=== PATIENT | female | born 1960 | race American Indian/Alaskan Native ===

== ENCOUNTER 2016-12-10 08:55 | Emergency (ER) | payer BC ==
[2016-12-10 10:05] VITALS: BP 97/48
--- NOTE | 2016-12-10 15:45 | Emergency Department Report ---
Chief Complaint: Shoulder Injury Stated Complaint: LT SHOULDER PAIN Time Seen by Provider: 12/10/16 15:36 - HPI History of Present Illness: 56-year-old female presents today with chronic left shoulder pain that worsened 2 months ago. Describes her pain as a 10 out of 10 constant, throbbing pain. Denies injury or trauma. Patient states that she's been taking her friend's muscle relaxer, Flexeril, with relief. Denies numbness, weakness, paresthesias. Denies fever, chills, nausea, vomiting, chest pain, shortness of breath, abdominal pain. - ROS Review of Systems: Per HPI - Exam Vital Signs: Vital Signs 12/10/16 10:02 Temperature 98.5 F Pulse Rate 75 Respiratory 22 Rate Blood Pressure 97/48 O2 Sat by Pulse 98 Oximetry Physical Exam: GENERAL: The patient is well-developed and well-nourished. Patient is in NAD. HEAD: Normocephalic. Atraumatic. CHEST/LUNGS: Clear to auscultation throughout. HEART/CARDIOVASCULAR: Regular rate and rhythm. ABDOMEN: Abdomen is soft, nontender. No guarding or rebound tenderness. LEFT SHOULDER: Limited range of motion due to pain. Tenderness to palpation of shoulder joint. Normal sensation. 2 point discrimination intact. Peripheral pulses intact. Capillary refill less than 2 seconds. NEURO: Alert and oriented x 3. Normal gait. MSE screening note: Focused history and physical exam performed. Due to findings the following was ordered: ED Disposition for MSE Disposition: MEDICAL SCREENING EXAM-LEFT Condition: Stable Referrals: ARPITA UGARTE MD [Primary Care Provider] - 3-5 Days
== END 2016-12-10 15:49 | disposition left against medical advice (07) ==
LOC: ED 08:55
DX: M25.512 Pain in left shoulder (principal); G89.29 Other chronic pain; Z53.21 Procedure and treatment not carried out due to patient leaving prior to being seen by health care provider

== ENCOUNTER 2018-01-11 11:43 | Outpatient (CLI) | payer MEDICARE ==
--- NOTE | 2018-01-11 13:50 | XRay Report ---
Left shoulder, 3 views: History: Pain in left shoulder. Routine views demonstrate normal bony and soft tissue structures with normal joint alignment of the shoulder. IMPRESSION: Unremarkable exam.
== END 2018-01-11 11:44 | disposition home or self-care (01) ==
LOC: XRAY 11:43
PROVIDERS: ATTEND Internal Medicine
DX: M25.512 Pain in left shoulder (principal)

== ENCOUNTER 2019-06-10 20:30 | Emergency (ER) | payer MEDICARE ==
[2019-06-10 22:00] LABS: Basophils % (Auto) 0.5 % (0.0-1.8); Eosinophils # (Auto) 0.2 K/mm3 (0.0-0.4); Eosinophils % (Auto) 3.6 % (0.0-4.3); Hematocrit 31.2 % (30.3-42.9); Hemoglobin 10.2 gm/dl (10.1-14.3); Lymphocytes # (Auto) 1.9 K/mm3 (1.2-5.4); Lymphocytes % (Auto) 32.7 % (13.4-35.0); Mean Corpuscular HGB Conc 33 % (30-34); Mean Corpuscular Hemoglobin 29 pg (28-32); Mean Corpuscular Volume 87 fl (79-97); Monocytes # (Auto) 0.6 K/mm3 (0.0-0.8); Monocytes % (Auto) 9.8 % (0.0-7.3); Platelet Count 287 K/mm3 (140-440); Red Blood Count 3.57 M/mm3 (3.65-5.03); Red Cell Distribution Width 14.4 % (13.2-15.2)
[2019-06-10 22:09] LABS: INR 0.95 (0.87-1.13)
[2019-06-10 22:10] LABS: Partial Thromboplastin Time 24.5 Sec. (24.2-36.6)
[2019-06-10 22:11] LABS: Calcium 9.6 mg/dL (8.4-10.2)
--- NOTE | 2019-06-11 02:04 | Emergency Department Report ---
ED Extremity Problem HPI - General Chief complaint: Extremity Injury, Lower Stated complaint: RIGHT FOOT PAIN/SWOLLEN Time Seen by Provider: 06/10/19 23:14 Source: patient Mode of arrival: Ambulatory Limitations: No Limitations - History of Present Illness Initial comments: Patient is a 58-year-old female who presents to the emergency room with complain ts of right foot pain and swelling that began 3 days ago. she denies ever having this in the past. she denies any calf pain. she denies any injury or fall. She states that she called her doctor's office and was advised to be evaluated in the emergency room for a DVT. She has a past medical history of DM, CHF, PAD, glaucoma, DE. She states she takes Lasix for her CHF. She states she does not usually experience swelling with her CHF. She denies any history of DVT or PE. - Related Data Home Medications Medication Instructions Recorded Confirmed Last Taken Isosorbide Dinitrate [Isordil 20 mg PO BID 05/31/15 05/31/15 05/30/15 Titradose] Lisinopril [Zestril TAB] 40 mg PO QDAY 05/31/15 05/31/15 05/30/15 Sitagliptin Phos/Metformin HCl 1 each PO DAILY 05/31/15 05/31/15 05/30/15 [Janumet 50-500 mg Tablet] hydrALAZINE [Apresoline TAB] 25 mg PO Q8H 05/31/15 05/31/15 05/30/15 Previous Rx's Medication Instructions Recorded Last Taken Type Aspirin 325 mg PO QDAY #30 tablet 07/28/13 05/30/15 Rx Carvedilol [Coreg] 25 mg PO BID #60 tablet 07/28/13 05/30/15 Rx Clopidogrel [Plavix] 75 mg PO QDAY #30 tablet 07/28/13 05/30/15 Rx Hum Insulin NPH/Reg Insulin Hm 15 unit SQ BID #14 ml 07/28/13 05/30/15 Rx [Humulin 70-30 Pen] Simvastatin [Zocor TAB] 40 mg PO QHS #30 tablet 07/28/13 05/30/15 Rx Acetaminophen [Acetaminophen ER] 650 mg PO BID PRN #20 tablet.er 06/11/19 Unknown Rx Allergies Allergy/AdvReac Type Severity Reaction Status Date / Time potassium [From Potassimin] Allergy Itching Unverified 06/10/19 21:04 ED Review of Systems ROS: Stated complaint: RIGHT FOOT PAIN/SWOLLEN Other details as noted in HPI Comment: All other systems reviewed and negative ED Past Medical Hx - Past Medical History Previous Medical History?: Yes Hx Congestive Heart Failure: Yes Hx Diabetes: Yes Hx GERD: No Hx Renal Disease: No Hx Headaches / Migraines: No Hx Kidney Stones: No Hx Asthma: No Hx COPD: Yes (pt denies) Hx Tuberculosis: No Hx HIV: No Additional medical history: pneumonia - Surgical History Past Surgical History?: Yes Additional Surgical History: cardiac cath - Social History Smoking Status: Never Smoker Substance Use Type: None - Medications Home Medications: Home Medications Medication Instructions Recorded Confirmed Last Taken Type Aspirin 325 mg PO QDAY #30 tablet 07/28/13 05/31/15 05/30/15 Rx Carvedilol [Coreg] 25 mg PO BID #60 tablet 07/28/13 05/31/15 05/30/15 Rx Clopidogrel [Plavix] 75 mg PO QDAY #30 tablet 07/28/13 05/31/15 05/30/15 Rx Hum Insulin NPH/Reg Insulin Hm 15 unit SQ BID #14 ml 07/28/13 05/31/15 05/30/15 Rx [Humulin 70-30 Pen] Simvastatin [Zocor TAB] 40 mg PO QHS #30 tablet 07/28/13 05/31/15 05/30/15 Rx Isosorbide Dinitrate [Isordil 20 mg PO BID 05/31/15 05/31/15 05/30/15 History Titradose] Lisinopril [Zestril TAB] 40 mg PO QDAY 05/31/15 05/31/15 05/30/15 History Sitagliptin Phos/Metformin HCl 1 each PO DAILY 05/31/15 05/31/15 05/30/15 History [Janumet 50-500 mg Tablet] hydrALAZINE [Apresoline TAB] 25 mg PO Q8H 05/31/15 05/31/15 05/30/15 History Acetaminophen [Acetaminophen ER] 650 mg PO BID PRN #20 tablet.er 06/11/19 Unknown Rx ED Physical Exam - General Limitations: No Limitations General appearance: alert, in no apparent distress - Head Head exam: Present: atraumatic, normocephalic - Eye Eye exam: Present: normal appearance - ENT ENT exam: Present: mucous membranes moist - Respiratory Respiratory exam: Present: normal lung sounds bilaterally. Absent: respiratory distress, wheezes, rales, rhonchi, stridor, chest wall tenderness, accessory muscle use, decreased breath sounds, prolonged expiratory - Cardiovascular Cardiovascular Exam: Present: regular rate, normal rhythm, normal heart sounds. Absent: systolic murmur, diastolic murmur, rubs, gallop - Extremities Exam Extremities exam: Present: other (non pitting edema present to the right foot f rom below the ankle to the toes, neurovascularly intact) - Neurological Exam Neurological exam: Present: alert, oriented X3 - Psychiatric Psychiatric exam: Present: normal affect, normal mood - Skin Skin exam: Present: warm, dry, intact ED Course Vital Signs 06/10/19 06/11/19 21:02 03:32 Temperature 98 F 98 F Pulse Rate 76 76 Respiratory 16 18 Rate Blood Pressure 136/61 Blood Pressure 123/68 [Left] O2 Sat by Pulse 99 99 Oximetry ED Medical Decision Making - Lab Data Result diagrams: 06/10/19 21:43 06/10/19 21:43 Lab Results 06/10/19 06/10/19 06/10/19 Range/Units 21:43 21:43 21:43 WBC 5.9 (4.5-11.0) K/mm3 RBC 3.57 L (3.65-5.03) M/mm3 Hgb 10.2 (10.1-14.3) gm/dl Hct 31.2 (30.3-42.9) % MCV 87 (79-97) fl MCH 29 (28-32) pg MCHC 33 (30-34) % RDW 14.4 (13.2-15.2) % Plt Count 287 (140-440) K/mm3 Lymph % (Auto) 32.7 (13.4-35.0) % [place] % (Auto) 9.8 H (0.0-7.3) % Eos % (Auto) 3.6 (0.0-4.3) % Baso % (Auto) 0.5 (0.0-1.8) % Lymph # 1.9 (1.2-5.4) K/mm3 [place] # 0.6 (0.0-0.8) K/mm3 Eos # 0.2 (0.0-0.4) K/mm3 Baso # 0.0 (0.0-0.1) K/mm3 Seg Neutrophils % 53.4 (40.0-70.0) % Seg Neutrophils # 3.2 (1.8-7.7) K/mm3 PT 12.4 (12.2-14.9) Sec. INR 0.95 (0.87-1.13) APTT 24.5 (24.2-36.6) Sec. Sodium 144 (137-145) mmol/L Potassium 5.0 (3.6-5.0) mmol/L Chloride 105.2 (98-107) mmol/L Carbon Dioxide 29 (22-30) mmol/L Anion Gap 15 mmol/L BUN 48 H (7-17) mg/dL Creatinine 1.9 H (0.7-1.2) mg/dL Estimated GFR 33 ml/min BUN/Creatinine Ratio 25 % Glucose 121 H (65-100) mg/dL Calcium 9.6 (8.4-10.2) mg/dL NT-Pro-B Natriuret Pep (0-900) pg/mL 06/10/19 Range/Units 23:31 WBC (4.5-11.0) K/mm3 RBC (3.65-5.03) M/mm3 Hgb (10.1-14.3) gm/dl Hct (30.3-42.9) % MCV (79-97) fl MCH (28-32) pg MCHC (30-34) % RDW (13.2-15.2) % Plt Count (140-440) K/mm3 Lymph % (Auto) (13.4-35.0) % [place] % (Auto) (0.0-7.3) % Eos % (Auto) (0.0-4.3) % Baso % (Auto) (0.0-1.8) % Lymph # (1.2-5.4) K/mm3 [place] # (0.0-0.8) K/mm3 Eos # (0.0-0.4) K/mm3 Baso # (0.0-0.1) K/mm3 Seg Neutrophils % (40.0-70.0) % Seg Neutrophils # (1.8-7.7) K/mm3 PT (12.2-14.9) Sec. INR (0.87-1.13) APTT (24.2-36.6) Sec. Sodium (137-145) mmol/L Potassium (3.6-5.0) mmol/L Chloride (98-107) mmol/L Carbon Dioxide (22-30) mmol/L Anion Gap mmol/L BUN (7-17) mg/dL Creatinine (0.7-1.2) mg/dL Estimated GFR ml/min BUN/Creatinine Ratio % Glucose (65-100) mg/dL Calcium (8.4-10.2) mg/dL NT-Pro-B Natriuret Pep 619.3 (0-900) pg/mL - Radiology Data Radiology results: report reviewed DUPLEX DOPPLER LOWER EXTREMITY VEINS, RIGHT INDICATION: RLE edema. TECHNIQUE: Duplex doppler imaging was performed through the veins of the right lower extremity using venous compression and other maneuvers. COMPARISON: No relevant prior imaging study available. FINDINGS: Common Femoral vein: Negative. Superficial Femoral vein: Negative. Popliteal vein: Negative. Calf veins: Negative. Additional findings: None. IMPRESSION: No sonographic evidence for DVT in the right lower extremity. Signer Name: Adam Wagner MD Signed: 06/11/2019 2:57 AM Workstation Name: [id number] Transcribed By: MIGUEL Dictated By: Adam Wagner MD Electronically Authenticated By: Adam Wagner MD Signed Date/Time: 06/11/19 0257 - Medical Decision Making Patient is a 58-year-old female who presents to the emergency room with complaints of right foot pain and swelling that began 3 days ago. she denies ever having this in the past. she denies any calf pain. she denies any injury or fall. She states that she called her doctor's office and was advised to be evaluated in the emergency room for a DVT. She has a past medical history of DM, CHF, PAD, glaucoma, DE. She states she takes Lasix for her CHF. She states she does not usually experience swelling with her CHF. She denies any history of DVT or PE. VSS. on exam: non pitting edema present to the right foot from below the ankle to the toes, neurovascularly intact. labs shows evidence of kidney dysfunction likely due to her hx of DM. US of the RLE with no acute process, no DVT. advised pt to please elevate your legs and use compression stockings. please follow-up with your primary care doctor in the next 2-3 days. discuss with your doctor your kidney dysfunction. Return to the emergency room for any new or worsening symptoms. - Differential Diagnosis DVT, CHF, varicose veins, PVD Critical care attestation.: If time is entered above; I have spent that time in minutes in the direct care of this critically ill patient, excluding procedure time. ED Disposition Clinical Impression: Edema of right foot, Kidney dysfunction Disposition: TO HOME OR SELFCARE Is pt being admited?: No Does the pt Need Aspirin: No Condition: Stable Instructions: Leg Edema (ED) Additional Instructions: Please elevate your legs and use compression stockings. please follow-up with your primary care doctor in the next 2-3 days. discuss with your doctor your kidney dysfunction. Return to the emergency room for any new or worsening symptoms. Prescriptions: Acetaminophen [Acetaminophen ER] 650 mg PO BID PRN #20 tablet.er PRN Reason: pain Referrals: ARPITA UGARTE MD [Primary Care Provider] - 2-3 Days Forms: Work/School Release Form(ED) Time of Disposition: 03:19 Print Language: ARMENIAN
--- NOTE | 2019-06-11 03:02 | Vascular Lab Report ---
DUPLEX DOPPLER LOWER EXTREMITY VEINS, RIGHT INDICATION: RLE edema. TECHNIQUE: Duplex doppler imaging was performed through the veins of the right lower extremity using venous comp ression and other maneuvers. COMPARISON: No relevant prior imaging study available. FINDINGS: Common Femoral vein: Negative. Superficial Femoral vein: Negative. Popliteal vein: Negative. Calf veins: Negative. Additional findings: None. IMPRESSION: No sonographic evidence for DVT in the right lower extremity. Signer Name: Adam Wagner MD Signed: 06/11/2019 2:57 AM Workstation Name: [email or web address]
[2019-06-11 03:33] VITALS: BP 123/68
== END 2019-06-11 03:34 | disposition home or self-care (01) ==
LOC: ED 20:30
DX: R60.0 Localized edema (principal); N28.9 Disorder of kidney and ureter, unspecified; E11.9 Type 2 diabetes mellitus without complications; I50.9 Heart failure, unspecified; I25.2 Old myocardial infarction; I73.9 Peripheral vascular disease, unspecified; J44.9 Chronic obstructive pulmonary disease, unspecified; Z87.01 Personal history of pneumonia (recurrent); Z79.899 Other long term (current) drug therapy; Z79.82 Long term (current) use of aspirin; Z79.4 Long term (current) use of insulin; Z88.8 Allergy status to other drugs, medicaments and biological substances
CPT/HCPCS: 36415; 80048; 83880; 85025; 85610; 85730

== ENCOUNTER 2019-08-23 08:38 | Outpatient (CLI) | payer MEDICARE ==
--- NOTE | 2019-08-23 16:05 | Mammography Report ---
DIGITAL SCREENING MAMMOGRAM WITH CAD, 08/23/2019 INDICATION: Routine screening mammography. TECHNIQUE: Digital bilateral 2D mammography was obtained in the craniocaudal and mediolateral obliq ue projections. This examination was interpreted with the benefit of Computer-Aided Detection analysi s. COMPARISON: 10/23/2016 FINDINGS: Breast Density: The breasts are almost entirely fatty. There is no evidence of dominant mass, suspicious calcifications or architectural distortion in eithe r breast. Scattered bilateral benign calcifications. IMPRESSION: No mammographic evidence of malignancy. Follow up recommendation: Routine yearly BI-RADS Category 2: Benign. A "normal" or negative report should not discourage follow up or biopsy of a clinically significant f inding. A written summary of these findings will be mailed to the patient. The patient will be entered into a mammography reporting system which will generate a reminder letter for the patient's next appointmen t at the appropriate interval. The [employer] recommends yearly mammograms starting at age 40 and continuing as l roxanna as a woman is in good health. Breast MRI is recommended for women with an approximate 20-25% or greater lifetime risk of breast cancer, including women with a strong family history of breast or ova tyree cancer or who have been treated for Hodgkin's disease. Signer Name: Marcello Finley MD Signed: 08/23/2019 4:01 PM Workstation Name: [id number]
== END 2019-08-23 08:39 | disposition home or self-care (01) ==
LOC: MAMMO 08:38
PROVIDERS: ATTEND Internal Medicine
DX: Z12.31 Encounter for screening mammogram for malignant neoplasm of breast (principal); E78.00 Pure hypercholesterolemia, unspecified
CPT/HCPCS: 77067

== ENCOUNTER 2020-05-16 15:39 | Outpatient (CLI) | payer MEDICARE ==
--- NOTE | 2020-05-16 18:26 | XRay Report ---
RIGHT FOOT 3 VIEWS INDICATION / CLINICAL INFORMATION: Right foot pain COMPARISON: None available. FINDINGS: BONES / JOINT(S): No acute fracture or subluxation. There is mild degenerative change in the midfoot. SOFT TISSUES: No significant abnormality. ADDITIONAL FINDINGS: None. Signer Name: Dony Yoo MD Signed: 05/16/2020 6:22 PM Workstation Name: [id number]
== END 2020-05-16 15:40 | disposition home or self-care (01) ==
LOC: XRAY 15:39
PROVIDERS: ATTEND Orthopaedic Surgery
DX: M19.071 Primary osteoarthritis, right ankle and foot (principal)

== ENCOUNTER 2020-08-23 08:58 | Outpatient (CLI) | payer MEDICARE ==
--- NOTE | 2020-08-23 10:33 | Mammography Report ---
DIGITAL SCREENING MAMMOGRAM WITH CAD, 08/23/2020 INDICATION: Routine screening mammography. TECHNIQUE: Digital bilateral 2D mammography was obtained in the craniocaudal and mediolateral obliq ue projections. This examination was interpreted with the benefit of Computer-Aided Detection analysi s. COMPARISON: 08/23/2019, 10/23/2016 FINDINGS: Breast Density: The breasts are almost entirely fatty. There is no evidence of dominant mass, suspicious calcifications or architectural distortion in eithe r breast. Bilateral benign calcifications are stable. IMPRESSION: Follow up recommendation: Routine yearly BI-RADS Category 2: Benign. A "normal" or negative report should not discourage follow up or biopsy of a clinically significant f inding. A written summary of these findings will be mailed to the patient. The patient will be entered into a mammography reporting system which will generate a reminder letter for the patient's next appointmen t at the appropriate interval. The [employer] recommends yearly mammograms starting at age 40 and continuing as l roxanna as a woman is in good health. Breast MRI is recommended for women with an approximate 20-25% or greater lifetime risk of breast cancer, including women with a strong family history of breast or ova tyree cancer or who have been treated for Hodgkin's disease. Signer Name: Adam Wagner MD Signed: 08/23/2020 10:29 AM Workstation Name: [email or web address]
== END 2020-08-23 08:59 | disposition home or self-care (01) ==
LOC: MAMMO 08:58
PROVIDERS: ATTEND Internal Medicine
DX: Z12.31 Encounter for screening mammogram for malignant neoplasm of breast (principal)
CPT/HCPCS: 77067

== ENCOUNTER 2020-08-30 09:32 | Outpatient (CLI) | payer MEDICARE | END 2020-08-30 09:33 | disposition home or self-care (01) | LOC: LAB 09:32 | PROVIDERS: ATTEND Student in an Organized Health Care Education/Training Program | DX: I25.10 Atherosclerotic heart disease of native coronary artery without angina pectoris (principal); E08.29 Diabetes mellitus due to underlying condition with other diabetic kidney complication; R94.4 Abnormal results of kidney function studies; I10 Essential (primary) hypertension; E78.5 Hyperlipidemia, unspecified; D63.1 Anemia in chronic kidney disease | CPT/HCPCS: 36415; 83970 ==

== ENCOUNTER 2020-09-03 10:04 | Outpatient (CLI) | payer MEDICARE ==
[2020-09-03 11:13] LABS: Calcium 9.2 mg/dL (8.4-10.2)
[2020-09-03 11:58] LABS: Creatinine,Urine 75.9 mg/dL (0.1-20.0); Protein/Creatinine Ratio,Urine 0.13
== END 2020-09-03 10:05 | disposition home or self-care (01) ==
LOC: LAB 10:04
PROVIDERS: ATTEND Student in an Organized Health Care Education/Training Program
DX: I12.9 Hypertensive chronic kidney disease with stage 1 through stage 4 chronic kidney disease, or unspecified chronic kidney disease (principal); N18.30 Chronic kidney disease, stage 3 unspecified; R94.4 Abnormal results of kidney function studies; E08.29 Diabetes mellitus due to underlying condition with other diabetic kidney complication; E78.5 Hyperlipidemia, unspecified; E78.00 Pure hypercholesterolemia, unspecified; D63.1 Anemia in chronic kidney disease; I25.10 Atherosclerotic heart disease of native coronary artery without angina pectoris
CPT/HCPCS: 36415; 80048; 82040; 82570; 83970; 84100; 84156

== ENCOUNTER 2020-12-06 08:38 | Outpatient (CLI) | payer MEDICARE ==
[2020-12-06 09:51] LABS: Albumin 4.1 g/dL (3.9-5); Calcium 9.6 mg/dL (8.4-10.2)
[2020-12-06 12:30] LABS: Creatinine,Urine 151.7 mg/dL (0.1-20.0); Protein/Creatinine Ratio,Urine 0.05
== END 2020-12-06 08:39 | disposition home or self-care (01) ==
LOC: LAB 08:38
PROVIDERS: ATTEND Student in an Organized Health Care Education/Training Program
DX: R94.4 Abnormal results of kidney function studies (principal); I10 Essential (primary) hypertension; E78.5 Hyperlipidemia, unspecified; D63.1 Anemia in chronic kidney disease; I25.10 Atherosclerotic heart disease of native coronary artery without angina pectoris; N18.30 Chronic kidney disease, stage 3 unspecified; E08.29 Diabetes mellitus due to underlying condition with other diabetic kidney complication
CPT/HCPCS: 36415; 80048; 82040; 82570; 83970; 84100; 84156

== ENCOUNTER 2021-01-04 08:16 | Outpatient (CLI) | payer MEDICARE ==
[2021-01-04 08:52] LABS: Bilirubin,Urine NEG (Negative); Blood,Urine NEG (Negative); Color,Urine Yellow (Yellow); Mucus,Urine FEW /HPF; Protein,Urine <15 mg/dL mg/dL (Negative); Urobilinogen,Urine < 2.0 mg/dL (<2.0)
[2021-01-04 09:15] LABS: Calcium 9.2 mg/dL (8.4-10.2)
[2021-01-04 12:14] LABS: Creatinine,Urine 133.7 mg/dL (0.1-20.0); Protein/Creatinine Ratio,Urine 0.07
[2021-01-09 05:06] LABS: Albumin 3.7 g/dL (3.8-4.8)
== END 2021-01-04 08:17 | disposition home or self-care (01) ==
LOC: LAB 08:16
PROVIDERS: ATTEND Student in an Organized Health Care Education/Training Program
DX: I12.9 Hypertensive chronic kidney disease with stage 1 through stage 4 chronic kidney disease, or unspecified chronic kidney disease (principal); N18.30 Chronic kidney disease, stage 3 unspecified; R94.4 Abnormal results of kidney function studies; I10 Essential (primary) hypertension; E08.29 Diabetes mellitus due to underlying condition with other diabetic kidney complication; E78.5 Hyperlipidemia, unspecified; E66.9 Obesity, unspecified; D63.1 Anemia in chronic kidney disease; I25.10 Atherosclerotic heart disease of native coronary artery without angina pectoris
CPT/HCPCS: 36415; 80048; 81001; 82040; 82570; 83970; 84100; 84156; 84165

== ENCOUNTER 2021-04-01 08:39 | Outpatient (CLI) | payer MEDICARE ==
[2021-04-01 09:45] LABS: Albumin 3.8 g/dL (3.9-5)
[2021-04-01 11:47] LABS: Creatinine,Urine 187.9 mg/dL (0.1-20.0); Protein/Creatinine Ratio,Urine 0.07
== END 2021-04-01 08:40 | disposition home or self-care (01) ==
LOC: LAB 08:39
PROVIDERS: ATTEND Student in an Organized Health Care Education/Training Program
DX: I12.9 Hypertensive chronic kidney disease with stage 1 through stage 4 chronic kidney disease, or unspecified chronic kidney disease (principal); N18.30 Chronic kidney disease, stage 3 unspecified; D63.1 Anemia in chronic kidney disease; R94.4 Abnormal results of kidney function studies; E08.29 Diabetes mellitus due to underlying condition with other diabetic kidney complication; E78.5 Hyperlipidemia, unspecified; E66.9 Obesity, unspecified; I25.10 Atherosclerotic heart disease of native coronary artery without angina pectoris; N25.81 Secondary hyperparathyroidism of renal origin
CPT/HCPCS: 36415; 80048; 82040; 82570; 84100; 84156

== ENCOUNTER 2021-08-06 09:38 | Outpatient (CLI) | payer MEDICARE ==
[2021-08-06 10:55] LABS: Calcium 9.6 mg/dL (8.4-10.2)
[2021-08-06 11:02] LABS: Hematocrit 33.5 % (30.3-42.9); Mean Corpuscular HGB Conc 33 % (30-34); Mean Corpuscular Volume 88 fl (79-97); Platelet Count 261 K/mm3 (140-440); Red Cell Distribution Width 14.4 % (13.2-15.2)
[2021-08-06 14:29] LABS: Creatinine,Urine 97.4 mg/dL (0.1-20.0); Protein/Creatinine Ratio,Urine 0.05
== END 2021-08-06 09:39 | disposition home or self-care (01) ==
LOC: LAB 09:38
PROVIDERS: ATTEND Student in an Organized Health Care Education/Training Program
DX: I12.9 Hypertensive chronic kidney disease with stage 1 through stage 4 chronic kidney disease, or unspecified chronic kidney disease (principal); E08.29 Diabetes mellitus due to underlying condition with other diabetic kidney complication; N18.30 Chronic kidney disease, stage 3 unspecified; D63.1 Anemia in chronic kidney disease; E78.5 Hyperlipidemia, unspecified; I25.10 Atherosclerotic heart disease of native coronary artery without angina pectoris; N25.81 Secondary hyperparathyroidism of renal origin
CPT/HCPCS: 36415; 80048; 82040; 82570; 83970; 84100; 84156; 85027

== ENCOUNTER 2021-08-27 11:28 | Outpatient (CLI) | payer MEDICARE ==
--- NOTE | 2021-08-27 18:48 | Mammography Report ---
DIGITAL SCREENING MAMMOGRAM WITH CAD, 08/27/2021 CLINICAL INFORMATION / INDICATION: Routine screening mammography. TECHNIQUE: Digital bilateral 2D mammography was obtained in the craniocaudal and mediolateral obliqu e projections. This examination was interpreted with the benefit of Computer-Aided Detection analysis . COMPARISON: 08/23/2019 FINDINGS: Breast Density: The breasts are almost entirely fatty. No dominant mass, suspicious calcifications, or architectural distortion in either breast. Bilateral scattered benign calcifications are noted. Overall, no significant interval change. IMPRESSION: No mammographic evidence of malignancy. Follow up recommendation: Routine yearly BI-RADS Category 2: Benign. A "normal" or negative report should not discourage follow up or biopsy of a clinically significant f inding. A written summary of these findings will be mailed to the patient. The patient will be entered into a mammography reporting system which will generate a reminder letter for the patient's next appointmen t at the appropriate interval. The [employer] recommends yearly mammograms starting at age 40 and continuing as l roxanna as a woman is in good health. Breast MRI is recommended for women with an approximate 20-25% or greater lifetime risk of breast cancer, including women with a strong family history of breast or ova tyree cancer or who have been treated for Hodgkin's disease. Signer Name: Citlalli Ramey MD Signed: 08/27/2021 6:44 PM Workstation Name: [id number]
== END 2021-08-27 11:29 | disposition home or self-care (01) ==
LOC: MAMMO 11:28
PROVIDERS: ATTEND Physician Assistant
DX: Z12.31 Encounter for screening mammogram for malignant neoplasm of breast (principal); N64.89 Other specified disorders of breast
CPT/HCPCS: 77067

== ENCOUNTER 2021-11-12 10:24 | Outpatient (CLI) | payer MEDICARE ==
[2021-11-12 11:39] LABS: Albumin 4.1 g/dL (3.9-5); Calcium 9.5 mg/dL (8.4-10.2)
[2021-11-12 12:36] LABS: Creatinine,Urine 146.6 mg/dL (0.1-20.0); Protein/Creatinine Ratio,Urine 0.07
== END 2021-11-12 10:25 | disposition home or self-care (01) ==
LOC: LAB 10:24
PROVIDERS: ATTEND Student in an Organized Health Care Education/Training Program
DX: I12.9 Hypertensive chronic kidney disease with stage 1 through stage 4 chronic kidney disease, or unspecified chronic kidney disease (principal); I25.10 Atherosclerotic heart disease of native coronary artery without angina pectoris; R94.4 Abnormal results of kidney function studies; E08.29 Diabetes mellitus due to underlying condition with other diabetic kidney complication; E78.5 Hyperlipidemia, unspecified; D63.1 Anemia in chronic kidney disease; N18.30 Chronic kidney disease, stage 3 unspecified; N25.81 Secondary hyperparathyroidism of renal origin; E87.3 Alkalosis; E79.0 Hyperuricemia without signs of inflammatory arthritis and tophaceous disease
CPT/HCPCS: 36415; 80048; 82040; 82570; 83970; 84100; 84156

== ENCOUNTER 2022-02-04 08:34 | Outpatient (CLI) | payer MEDICARE ==
[2022-02-04 09:34] LABS: Albumin 4.3 g/dL (3.9-5); Calcium 9.9 mg/dL (8.4-10.2)
[2022-02-04 12:18] LABS: Creatinine,Urine 155.9 mg/dL (0.1-20.0); Protein/Creatinine Ratio,Urine 0.05
== END 2022-02-04 08:35 | disposition home or self-care (01) ==
LOC: LAB 08:34
PROVIDERS: ATTEND Student in an Organized Health Care Education/Training Program
DX: I12.9 Hypertensive chronic kidney disease with stage 1 through stage 4 chronic kidney disease, or unspecified chronic kidney disease (principal); N18.9 Chronic kidney disease, unspecified; E66.9 Obesity, unspecified; R94.4 Abnormal results of kidney function studies; E08.29 Diabetes mellitus due to underlying condition with other diabetic kidney complication; E78.5 Hyperlipidemia, unspecified; D63.1 Anemia in chronic kidney disease; I25.10 Atherosclerotic heart disease of native coronary artery without angina pectoris; N18.30 Chronic kidney disease, stage 3 unspecified; N25.81 Secondary hyperparathyroidism of renal origin; E87.3 Alkalosis
CPT/HCPCS: 36415; 80048; 82040; 82570; 84100; 84156

== ENCOUNTER 2022-04-30 08:22 | Outpatient (CLI) | payer MEDICARE ==
[2022-04-30 08:52] LABS: Hematocrit 33.4 % (30.3-42.9); Hemoglobin 10.9 gm/dl (10.1-14.3); Mean Corpuscular HGB Conc 33 % (30-34); Mean Corpuscular Volume 88 fl (79-97); Platelet Count 235 K/mm3 (140-440); Red Blood Count 3.79 M/mm3 (3.65-5.03); Red Cell Distribution Width 15.5 % (13.2-15.2)
[2022-04-30 09:13] LABS: Albumin 4.3 g/dL (3.9-5); Calcium 9.1 mg/dL (8.4-10.2)
[2022-04-30 14:07] LABS: Creatinine,Urine 135.7 mg/dL (0.1-20.0); Protein/Creatinine Ratio,Urine 0.07
== END 2022-04-30 08:23 | disposition home or self-care (01) ==
LOC: LAB 08:22
PROVIDERS: ATTEND Student in an Organized Health Care Education/Training Program
DX: I12.9 Hypertensive chronic kidney disease with stage 1 through stage 4 chronic kidney disease, or unspecified chronic kidney disease (principal); N18.30 Chronic kidney disease, stage 3 unspecified; R94.4 Abnormal results of kidney function studies; E08.29 Diabetes mellitus due to underlying condition with other diabetic kidney complication
CPT/HCPCS: 36415; 80048; 82040; 82570; 83970; 84100; 84156; 85027